=== PATIENT | female | born 1935 | race Caucasian/White ===

== ENCOUNTER → 2017-07-24 13:52 | Outpatient (CLI) | payer MEDICARE, OTHER, SELFPAY ==
--- NOTE | 2017-07-24 14:02 | XR_ITS ---
XR ankle RT min 3V, XR tibia fibula RT 2V Ordering Physician: Deepthi So MD Patient Age: 81 years: Female HISTORY: Right ankle and leg pain, swelling. Fall. Right leg pain and swelling TECHNIQUE: Right ankle, 3 views Right lower leg, 2 views . 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 Hypertrophy. Subchondral cystic changes throughout the tarsals most pronounced at the navicular cuneiform and base of metatarsals. Similar but less pronounced findings are seen at the subtalar joint the ankle mortise itself seems to be fairly well-maintained. There is some dystrophic and heterotrophic calcification seen beneath the medial malleolus and along the medial aspect of the ankle. Some minimal old dystrophic calcification off the tip of the medial malleolus. These likely reflect old trauma. Early 10 mm plantar calcaneal spur with calcification along the plantar aponeurosis. Can be associated with planar fasciitis. Less pronounced Spurring is also seen at the insertion of Achilles tendon IMPRESSION: ... . No fracture. 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 Additionally note Dystrophic/heterotopic calcification overlying the medial ankle possibly from old trauma or injury . Plantar calcaneal spur with minimal calcification along plantar aponeurosis.-can be associatedw plantar fasciitis RIGHT LOWER LE VIEWS: The tibia and fibula intact with no acute findings or lesion. The studies include 2 views of the knee which demonstrate a right TKA appears overall intact with only, partially imaged. Also 2 views ankle are included again ankle joint is fairly well maintained but with most severe arthritic changes developing at the mid foot most notable. IMPRESSION......... Tibia and fibula are intact.. No fracture. No acute findings Right TKA partially imaged unremarkable . Only mild degenerative changes right ankle.... With again more pronounced arthritic changes are seen at the right midfoot.
== END ==
PROVIDERS: PCP Family Medicine; Visit Provider Family Medicine
DX: M79.604 Pain in right leg (principal); M79.89 Other specified soft tissue disorders
CPT/HCPCS: 73590; 73610

== ENCOUNTER → 2017-12-15 10:16 | Outpatient (POV) | payer MEDICARE, SELFPAY | PROVIDERS: Visit Provider Dermatology | DX: Z00.00 Encounter for general adult medical examination without abnormal findings (principal) ==

== ENCOUNTER → 2018-03-02 11:35 | Outpatient (CLI) | payer MEDICARE, OTHER, SELFPAY ==
--- NOTE | 2018-03-02 11:42 | XR_ITS ---
XR abdomen min 2V HISTORY: ITS.REASON: RT SIDED ABD PAIN ORDERING PHYSICIAN: Deepthi So MD PATIENT AGE: 82 years COMPARISON: None FINDINGS: Nonspecific nonobstructive bowel gas pattern. Mild levoscoliosis of the lumbar spine with prominent bony hypertrophic change on the left at L3, L4, and L5 which had a similar appearance on 11/08/2006. IMPRESSION: No acute finding Chronic changes of the lumbar spine
== END ==
PROVIDERS: PCP Family Medicine; Visit Provider Family Medicine
DX: R10.9 Unspecified abdominal pain (principal)
CPT/HCPCS: 74019

== ENCOUNTER → 2018-03-10 12:27 | Outpatient (CLI) | payer MEDICARE, OTHER, SELFPAY ==
--- NOTE | 2018-03-10 12:37 | CT_ITS ---
CT abdomen wo con CLINICAL INDICATION: Right sided abdominal pain radiating into the back and left iliac crest ITS.REASON: ABDOMINAL PAIN, UNSPECIFIED ABDOMINAL LOCATION ORDERING PHYSICIAN: Deepthi So MD PATIENT AGE: 82 years COMPARISON: None TECHNIQUE: Axial images obtained with sagittal and coronal reformats. All CT scans at the facility use one or more dose reduction, viz: automated exposure control, ma/kV adjustment per patient size (including targeted exams where dose is matched to indication, i.e. head), or iterative reconstruction technique. PROCEDURE: Oral Contrast: None IV Contrast: None . FINDINGS: The pelvis is not included in the exam. Lung base images show a medium-sized hiatal hernia. There are coronary artery calcifications and there is thickening of the pericardium suggesting small pericardial effusion. No obvious space-occupying lesions of the liver. Liver does have a somewhat nodular contour. The spleen, adrenal glands, and pancreas have an unremarkable unenhanced CT appearance. No renal or ureteral calculi. No hydronephrosis. There are some scattered small lymph nodes in the retroperitoneum. No intestinal structures are normal free air. There are some scattered small lymph nodes in the mesentery is measuring up to 1.7 cm in the left upper quadrant. Atherosclerotic calcification involves the abdominal aorta. No aneurysm. There are severe degenerative changes of the lumbar spine with fusion of the left lateral aspect of L4 and L5. IMPRESSION: 1. No acute abdominal findings. 2. Coronary artery calcifications with small pericardial effusion 3. Hiatal hernia. 4. Mildly enlarged mesenteric lymph nodes #5 nonspecific mild nodular contour of the lateral aspect of the right hepatic lobe of the liver which could be seen with early cirrhosis.
== END ==
PROVIDERS: PCP Family Medicine; Visit Provider Family Medicine
DX: R10.9 Unspecified abdominal pain (principal)
CPT/HCPCS: 74150

== ENCOUNTER → 2018-06-15 13:08 | Outpatient (POV) | payer MEDICARE, OTHER, SELFPAY | PROVIDERS: Visit Provider Dermatology | DX: Z00.00 Encounter for general adult medical examination without abnormal findings (principal) ==

== ENCOUNTER → 2018-10-04 09:48 | Outpatient (CLI) | payer MEDICARE, OTHER, SELFPAY ==
--- NOTE | 2018-10-04 10:02 | CA_ITS ---
APPROVED REPORT English As A Second Language Instructor: CT Laterality: Bilateral Study Quality: Technically Limited, Due to lung disease, body habitus. Indications: CS FOLLOW-UP Risk Factors Hypertension: Hyperlipidemia Doppler Spectral Velocity Analysis ECA (R) 107.00/ cm/s ECA (L) 115.00/ cm/s dICA (R) 127.00/27.50 cm/s dICA (L) 82.00/26.90 cm/s Sandy (R) 155.00/34.60 cm/s Sandy (L) 143.00/23.30 cm/s pICA (R) 65.80/19.80 cm/s pICA (L) 98.10/23.90 cm/s dCCA (R) 62.90/20.70 cm/s dCCA (L) 86.40/17.30 cm/s pCCA (R) 99.00/15.70 cm/s pCCA (L) 95.10/17.30 cm/s Vert (R) 42.10/ cm/s Vert (L) 51.90/ cm/s ICA/CCA 2.46 ICA/CCA 1.66 Findings Duplex evaluation demonstrates stenosis of the bilateral Internal Carotid Arteries in the range of 50-69%. Duplex evaluation demonstrates antegrade flow of the bilateral Vertebral Arteries. Technically difficult exam tortuous carotid arteries. Conclusion Duplex evaluation demonstrates stenosis of the bilateral Internal Carotid Arteries in the range of 50-69%. Duplex evaluation demonstrates antegrade flow of the bilateral Vertebral Arteries. Technically difficult exam tortuous carotid arteries. Electronically signed by : Isra Frazier MD 10/05/2018 09:34:12
== END ==
PROVIDERS: PCP Family Medicine; Visit Provider Family Medicine
DX: I65.23 Occlusion and stenosis of bilateral carotid arteries (principal)
CPT/HCPCS: 93880

== ENCOUNTER → 2020-03-06 15:43 | Outpatient (CLI) | payer MEDICARE, OTHER, SELFPAY ==
--- NOTE | 2020-03-06 15:51 | XR_ITS ---
PROCEDURE: XR CHEST 2V CLINICAL HISTORY: HX OF HIGH BLOOD PRESSURE Hypertension COMPARISON: CR CXR CHEST(2 VIEWS-NOT PORTABLE) from 08/23/2013 FINDINGS: Mild cardiomegaly. No evidence of CHF. There is evidence of old granulomatous disease. There is blunting of the right CP angle suggesting small right effusion. There is faint density in the right lobe and could be due to an area of atelectasis versus patchy infiltrate or scarring. Calcified granuloma is present left upper lobe. There has been a right shoulder prosthesis placement IMPRESSION: Cardiomegaly with trace right effusion patchy density in the right upper lobe which may be due to an area of atelectasis, patchy infiltrate, or scarring Dictated by: Isra Frazier MD 03/07/2020 06:54 Isra Frazier MD in [place] 03/07/2020 06:54
== END ==
PROVIDERS: PCP Family Medicine; Visit Provider Family Medicine
DX: Z01.818 Encounter for other preprocedural examination (principal)
CPT/HCPCS: 71046

== ENCOUNTER → 2020-03-09 07:43 | Outpatient (CLI) | payer MEDICARE, OTHER, SELFPAY ==
--- NOTE | 2020-03-09 07:49 | CT_ITS ---
PROCEDURE: CT CHEST WO CON CLINICAL INDICATION: Lung density seen on cxr COMPARISON: CR XR CHEST 2V from 03/06/2020 TECHNIQUE: Axial images obtained with sagittal and coronal reformats. All CT scans at the facility use one or more dose reduction, viz: automated exposure control, ma/kV adjustment per patient size (including targeted exams where dose is matched to indication, i.e. head), or iterative reconstruction technique. FINDINGS: There is atherosclerotic calcification the thoracic aorta. There is fluid in the superior recess of the pericardium. Pericardium is thickened posteriorly consistent with pericardial effusion measuring up to 12 mm. There is a moderate-sized hiatal hernia. There is trace right-sided pleural effusion. Patchy infiltrate is present in the right upper lobe posteriorly with some atelectatic changes. Faint infiltrate present in the right lower lobe in the perihilar region with some scattered small ground-glass areas of infiltrate in the left lower lobe and perihilar region. There is a right shoulder prosthesis present. There are degenerative changes in the thoracic and lumbar spine with mild upper lumbar scoliosis convex left. There is mild wedging involving T3 vertebral body age indeterminate. No retropulsion. There is a moderate-sized hiatal hernia. Mitral valve annular calcifications are present. IMPRESSION: 1. Patchy areas of ground-glass infiltrate in the right upper and right lower lobe and left upper and left lower lobe. This could represent Covid19 pneumonia. Other processes such is influenza pneumonia and organizing pneumonia, drug toxicity, connective tissue disease, and pulmonary hemorrhage can cause a similar imaging pattern. 2. Pericardial effusion with trace right-sided pleural effusion 3. Moderate-sized hiatal hernia. 4. Mild wedging of T3 age indeterminate Dictated by: Isra Frazier MD 03/12/2020 15:21 Isra Frazier MD in [place] 03/12/2020 15:21
== END ==
PROVIDERS: PCP Family Medicine; Visit Provider Family Medicine
DX: J98.4 Other disorders of lung (principal)
CPT/HCPCS: 71250

== ENCOUNTER → 2020-03-22 10:10 | Outpatient (CLI) | payer MEDICARE, OTHER, SELFPAY ==
--- NOTE | 2020-03-22 10:24 | CA_ITS ---
APPROVED REPORT EXAM: Comprehensive 2D, Doppler, and color-flow Echocardiogram Crib Pad Maker: Emily Michael RVT Ht: 5 ft 4 in Wt: 210lbs BSA: 2.00 BP: 169/90 mmHg Indications: SOA,HTN M-Mode Dimensions RVDd 1.77 cm (0.9-2.6) LA Diam 4.30 cm (1.9-4.0) LVDd 4.67 cm (3.5-5.7) Ao Diam 2.13 cm (2.0-3.7) LVDs 2.50 cm (3.5-5.7) IVSd 0.85 cm (0.6-1.1) PWd 1.21 cm (0.6-1.1) EF (Teich) 77.90% FS 46.50% EDV (Teich) 100.80 mL ESV (Teich) 22.30 mL LV Diastology E Decel Time 303.00 (160-240 msec) E/A Ratio 0.8 MED E' 5.50 (< 7 cm/sec) E'/MED E' Ratio 13.96 (>14) LAT E' 5.20 (<10 cm/sec) E/LAT E' Ratio 14.77 (>14) Mitral Valve MV E Max Manfred. 77.00 (40-130 cm/s) MV A Velocity 95.00 (40-130 cm/s) E/A Ratio 0.81 MV Decel. Time 303.00 (160-240 ms) MV PHT 89.00 ms Pulmonary Valve PV Peak Velocity 97.00 (50-150 cm/s) Tricuspid Valve TR P. Velocity 280.00 cm/s RAP Estimate 10.00 mmHg RVSP 41.30 mmHg Left Ventricle Left atrium is mildly enlarged, left ventricle is normal size, mild concentric left ventricular hypertrophy, visually estimated ejection fraction 55% with no regional wall motion abnormality, diastolic parameters are inconclusive. Right Ventricle Right atrium and right ventricle are mildly enlarged with normal contractility. Aortic Valve Aortic valve is thickened and calcified without aortic stenosis or aortic insufficiency. Mitral Valve Mitral valve leaflets are minimally thickened, there is mild mitral regurgitation. Tricuspid Valve Tricuspid valve is grossly normal, there is mild tricuspid regurgitation, calculated right ventricular systolic pressure is 41 mmHg. Pulmonic Valve Pulmonic valve is poorly visualized. Great Vessels Aortic root is normal size. Pericardium No significant pericardial effusion noted. Conclusion 1. Mildly enlarged left atrium, normal left ventricular size, mild concentric left ventricular hypertrophy, visually estimated ejection fraction 55% with no regional wall motion abnormality, diastolic parameters are inconclusive. 2. Mildly enlarged right ventricle with normal contractility. 3. Mild mitral and tricuspid regurgitation, calculated right ventricular systolic pressure is 41 mmHg. 4. No significant pericardial effusion noted. Electronically signed by : Mau Lara, 03/23/2020 13:56:39
== END ==
PROVIDERS: PCP Family Medicine; Visit Provider Internal Medicine Cardiovascular Disease
DX: R06.09 Other forms of dyspnea (principal)
CPT/HCPCS: 93306

== ENCOUNTER → 2020-03-27 14:35 | Outpatient (CLI) | payer MEDICARE, OTHER, SELFPAY ==
--- NOTE | 2020-03-27 14:45 | XR_ITS ---
PROCEDURE: XR CHEST 2V CLINICAL HISTORY: COUGH COMPARISON: CR CXR CHEST(2 VIEWS-NOT PORTABLE) from 08/23/2013 CR XR CHEST 2V from 03/06/[address] CHEST WO CON from 03/09/2020 FINDINGS: Cardiomegaly without failure. There is a small right pleural effusion. Calcified granuloma is present in the left upper lobe. There remains a small patchy area of infiltrate or fibrotic change in the right upper lobe which is not significantly changed. Prior right shoulder replacement IMPRESSION: No significant change in the patchy airspace disease in the right upper lobe with small right effusion. Dictated by: Isra Frazier MD 03/28/2020 11:51 Isra Frazier MD in [place] 03/28/2020 11:51
== END ==
PROVIDERS: PCP Family Medicine; Visit Provider Family Medicine
DX: R05 Cough (principal)
CPT/HCPCS: 71046

== ENCOUNTER → 2020-05-23 12:50 | Outpatient (CLI) | payer MEDICARE, OTHER, SELFPAY ==
--- NOTE | 2020-05-23 13:01 | XR_ITS ---
PROCEDURE: XR CHEST 2V CLINICAL HISTORY: ABN CXR Follow-up abnormal chest x-ray COMPARISON: CR CXR CHEST(2 VIEWS-NOT PORTABLE) from 08/23/2013 CR XR CHEST 2V from 03/06/[address] CHEST WO CON from 03/09/2020 CR XR CHEST 2V from 03/27/2020 FINDINGS: The cardiomediastinal silhouette and pulmonary vascularity are within normal limits. No lobar consolidation or collapse evident. There remains some increased density in the right upper lobe which may be related to chronic scarring and/or atelectatic change. There remains a small right pleural effusion. Calcified granuloma is present in left upper lobe. There is minimal blunting of the left CP angle suggesting tiny left effusion as well. There is a right shoulder prosthesis present. No acute bony abnormalities. IMPRESSION: Overall no significant change in the minimal airspace disease in the right upper lobe which may represent an area fibrotic change/scarring with small bilateral pleural effusions. Dictated by: Isra Frazier MD 05/23/2020 15:06 Isra Frazier MD in [place] 05/23/2020 15:06
== END ==
PROVIDERS: PCP Family Medicine; Visit Provider Family Medicine
DX: R93.89 Abnormal findings on diagnostic imaging of other specified body structures (principal)
CPT/HCPCS: 71046

== ENCOUNTER → 2020-09-18 12:47 | Outpatient (CLI) | payer MEDICARE, OTHER, SELFPAY ==
--- NOTE | 2020-09-18 13:03 | CA_ITS ---
APPROVED REPORT Monument Installer: MARCO ROJAS Laterality: Bilateral Study Quality: Technically Difficult, Due to tortuosity. Indications: Carotid stenosis Doppler Spectral Velocity Analysis ECA (R) 122.50/6.00 cm/s ECA (L) 132.90/8.70 cm/s dICA (R) 102.00/29.10 cm/s dICA (L) 135.80/28.90 cm/s Sandy (R) 102.00/22.30 cm/s Sandy (L) 123.30/27.90 cm/s pICA (R) 86.50/22.30 cm/s pICA (L) 77.10/12.00 cm/s dCCA (R) 45.10/21.60 cm/s dCCA (L) 84.80/13.50 cm/s pCCA (R) 96.00/12.00 cm/s pCCA (L) 78.30/12.80 cm/s Vert (R) 33.40/16.10 cm/s Vert (L) 52.00/11.60 cm/s ICA/CCA 1.06 ICA/CCA 1.74 Findings Duplex evaluation demonstrates stenosis of the right proximal internal carotid artery in the range of 20-49% with PSV <140 cm/sec, EDV <100 cm/sec, and IC/CC Ratio <4.0. Duplex evaluation demonstrates stenosis of the left proximal internal carotid artery in the range of 20-49% with PSV <140 cm/sec, EDV <100 cm/sec, and IC/CC Ratio <4.0. Duplex evaluation demonstrates antegrade flow of the bilateral Vertebral Arteries. B-Mode Ultrasound demonstrates minimal intraluminal plaque in the left common Carotid Artery. B-Mode Ultrasound demonstrates minimal intraluminal plaque in the right common Carotid artery. Bilateral ICA tortuosoity observed. Conclusion Duplex evaluation demonstrates stenosis of the right proximal internal carotid artery in the range of 20-49% with PSV <140 cm/sec, EDV <100 cm/sec, and IC/CC Ratio <4.0. Duplex evaluation demonstrates stenosis of the left proximal internal carotid artery in the range of 20-49% with PSV <140 cm/sec, EDV <100 cm/sec, and IC/CC Ratio <4.0. Duplex evaluation demonstrates antegrade flow of the bilateral Vertebral Arteries. B-Mode Ultrasound demonstrates minimal intraluminal plaque in the left common Carotid Artery. B-Mode Ultrasound demonstrates minimal intraluminal plaque in the right common Carotid artery. Bilateral ICA tortuosoity observed. Electronically signed by : Isra Frazier MD 09/18/2020 17:18:54
== END ==
PROVIDERS: PCP Family Medicine; Visit Provider Family Medicine
DX: I65.23 Occlusion and stenosis of bilateral carotid arteries (principal)
CPT/HCPCS: 93880